=== PATIENT | male | born 1970 | race African-American/Black ===

== ENCOUNTER 2016-08-19 21:49 | Inpatient (IN) | payer SELFPAY ==
[~2016-08-19] VITALS: Ht 191.8 cm; Wt 154.3 kg
[2016-08-19] MEDS ORDERED: ASPIRIN 81MG TABLET PO STA (22:31)
[2016-08-19] MEDS: NITROGLYCERIN 0.4MG TABLET SL SL PRN ×2 (22:45→22:50)
[2016-08-19] MEDS ORDERED: ONDANSETRON HCL 4MG/2ML VIAL IV STA (22:52)
[2016-08-19] MEDS ORDERED: MORPHINE SULFATE 4 MG/ML CPJ (NOT FOR IM USE) IV ONE (23:00)
[2016-08-19 23:06] LABS: BASOPHILS % 0.3 % (0.0-2.0); HEMATOCRIT. 44.5 % (42.0-52.0); HEMOGLOBIN. 14.6 g/dL (14.0-18.0); LYMPHOCYTES % 7.3 % (20.0-50.0); MEAN CORPUSCULAR HEMOGLOBIN 28.2 pg (28.0-32.0); MEAN CORPUSCULAR HGB CONC 32.9 g/dL (31.0-37.0); MEAN CORPUSCULAR VOLUME 85.7 fL (80.0-94.0); MEAN PLATELET VOLUME 9.2 fl (7.4-10.4); MONOCYTES % 4.4 % (2.0-8.0); PLATELET 210 x1000/uL (130-400); RED BLOOD CELL COUNT 5.19 mill/uL (4.7-6.1); RED CELL DISTRIBUTION WIDTH 13.7 % (11.6-14.6); WHITE BLOOD COUNT 8.5 x1000/uL (4.5-11.0)
[2016-08-19 23:11] LABS: CALCIUM 9.1 mg/dL (8.5-10.1); D-DIMER 0.73 mg/L FEU (<0.50); INR 1.1; PARTIAL THROMBOPLASTIN TIME 24.3 sec (24.0-34.0); PROTHROMBIN TIME 11.4 sec
[2016-08-19 23:17] LABS: TROPONIN I 0.03 ng/mL (0.00-0.04)
[2016-08-20] MEDS ORDERED: LORAZEPAM 2MG/ML CPJ IV ONE
[2016-08-20] MEDS ORDERED: ONDANSETRON HCL 4MG/2ML VIAL IV PRN (00:45)
[2016-08-20] MEDS ORDERED: ACETAMINOPHEN 325MG TABLET PO PRN (00:45)
[2016-08-20] MEDS ORDERED: IPRATROPIUM/ALBUTEROL 0.5-3(2.5)MG/3ML NEB INH PRN (00:45)
[2016-08-20] MEDS ORDERED: DOCUSATE SODIUM 100MG CAPSULE PO PRN (00:45)
[2016-08-20] MEDS: HYDROCODONE/ACETAMINOPHEN 5/325MG TABLET PO PRN ×3 (04:00→20:49)
[2016-08-20 04:30] VITALS: BP 113/85
[2016-08-20] MEDS ORDERED: MVI, ADULT NO.1 10 ML, FOLIC ACID 1 MG, THIAMINE HCL 100 MG in SODIUM CHLORIDE 0.9% 1,0... IV NR ×4 (06:00)
[2016-08-20 06:56] LABS: HEMATOCRIT 40.6 % (42.0-52.0); HEMOGLOBIN 13.4 g/dL (14.0-18.0); MEAN CORPUSCULAR HGB CONC 33.1 g/dL (31.0-37.0); MEAN CORPUSCULAR VOLUME 84.6 fL (80.0-94.0); PLATELET 209 x1000/uL (130-400); RED BLOOD CELL COUNT 4.79 mill/uL (4.7-6.1); WHITE BLOOD COUNT 8.6 x1000/uL (4.5-11.0)
[2016-08-20 07:11] LABS: ANION GAP 13; CALCIUM 8.6 mg/dL (8.5-10.1); CARBON DIOXIDE 26 mEq/L (21-32); CHLORIDE 105 mEq/L (98-107); HDL CHOLESTEROL 59 mg/dL (40-59); INDEX HEMOLYSI 2 (1-3); INDEX ICTERIC 1 (1-4); INDEX LIPEMIC 1 (1-3); LDL CHOLESTEROL 57 mg/dL (5-100); TRIGLYCERIDE 59 mg/dL (0-150); TROPONIN I 0.06 ng/mL (0.00-0.04); UREA NITROGEN BLOOD 17 mg/dL (7-21); eGFR > 60 mL/min (>60)
[2016-08-20] MEDS ORDERED: SERT50TA PO (07:45)
[2016-08-20] MEDS ORDERED: AMLO10TA80 PO (07:45)
[2016-08-20] MEDS ORDERED: TRAM50TA3 PO (07:45)
[2016-08-20] MEDS ORDERED: HYDR-519 PO (07:45)
[2016-08-20] MEDS ORDERED: HYDR25TA PO (07:45)
[2016-08-20] MEDS ORDERED: MIRT45TA PO (07:45)
[2016-08-20 08:00] VITALS: BP 117/71
[2016-08-20] MEDS ORDERED: ENOXAPARIN 30MG/0.3ML SYR SUBCUT SCH (09:00)
[2016-08-20 12:00] VITALS: BP 115/79
[2016-08-20 12:53] LABS: *AMPHETAMINES SCREEN URINE NEGATIVE (NEGATIVE); *BARBITURATES SCREEN URINE NEGATIVE (NEGATIVE); *BENZODIAZEPINES SCREEN URINE NEGATIVE (NEGATIVE); *COCAINE SCREEN URINE PRESUMTIVE POSITIVE (NEGATIVE); CANNABINOID URINE SCREEN NEGATIVE (NEGATIVE); ECSTASY MDMA SCREEN URINE NEGATIVE (NEGATIVE); METHADONE URINE SCREEN NEGATIVE (NEGATIVE); OPIATES URINE SCREEN PRESUMTIVE POSITIVE (NEGATIVE); PHENCYCLIDINE URINE SCREEN NEGATIVE (NEGATIVE)
[2016-08-20] MEDS ORDERED: SODIUM CHLORIDE 0.9% 10ML VIAL ONE (13:37)
[2016-08-20] MEDS ORDERED: IOHEXOL-350 100 ML BOTTLE ONE (13:37)
[2016-08-20] MEDS: CLOTRIMAZOLE 1% CREAM 30GM TOP SCH ×2 (15:04→20:50)
[2016-08-20 16:00] VITALS: BP 132/94
[2016-08-20 20:00] VITALS: BP 133/96
[2016-08-20] MEDS: ENOXAPARIN 40MG/0.4ML SYR SUBCUT SCH (20:49)
[2016-08-21] VITALS: BP 116/60
[2016-08-21 04:00] VITALS: BP 126/84
[2016-08-21 06:02] LABS: BASOPHILS % 0.5 % (0.0-2.0); EOSINOPHILS % 2.1 % (0.0-5.0); HEMATOCRIT. 40.1 % (42.0-52.0); HEMOGLOBIN. 13.1 g/dL (14.0-18.0); LYMPHOCYTES % 50.6 % (20.0-50.0); MEAN CORPUSCULAR HEMOGLOBIN 28.1 pg (28.0-32.0); MEAN CORPUSCULAR HGB CONC 32.6 g/dL (31.0-37.0); MEAN CORPUSCULAR VOLUME 86.3 fL (80.0-94.0); MONOCYTES % 9.5 % (2.0-8.0); NEUTROPHILS % 37.3 % (40.0-76.0); PLATELET 185 x1000/uL (130-400); RED BLOOD CELL COUNT 4.65 mill/uL (4.7-6.1); RED CELL DISTRIBUTION WIDTH 14.1 % (11.6-14.6); WHITE BLOOD COUNT 6.8 x1000/uL (4.5-11.0)
[2016-08-21 06:42] LABS: ANION GAP 11; CALCIUM 8.3 mg/dL (8.5-10.1); CARBON DIOXIDE 32 mEq/L (21-32); CHLORIDE 101 mEq/L (98-107); INDEX HEMOLYSI 1 (1-3); INDEX ICTERIC 1 (1-4); INDEX LIPEMIC 1 (1-3); UREA NITROGEN BLOOD 18 mg/dL (7-21); eGFR > 60 mL/min (>60)
[2016-08-21 08:00] VITALS: BP 126/99
[2016-08-21] MEDS: ENOXAPARIN 40MG/0.4ML SYR SUBCUT SCH (08:42)
[2016-08-21] MEDS: CLOTRIMAZOLE 1% CREAM 30GM TOP SCH (08:43)
[2016-08-21 11:53] VITALS: BP 128/87
[2016-08-21 14:50] VITALS: BP 137/86
== END 2016-08-21 15:25 | disposition home or self-care (01) | DRG 203 ==
LOC: ER 21:57 → 6WST 08-20 00:17 → SUPCPDRO 08-20 00:35
PROVIDERS: ADMIT Family Medicine Adult Medicine; ATTEND Family Medicine Adult Medicine
DX: R07.89 Other chest pain (principal); N17.9 Acute kidney failure, unspecified; Z68.41 Body mass index [BMI] 40.0-44.9, adult; I10 Essential (primary) hypertension; E11.9 Type 2 diabetes mellitus without complications; E66.9 Obesity, unspecified; F31.9 Bipolar disorder, unspecified; F12.90 Cannabis use, unspecified, uncomplicated; F43.10 Post-traumatic stress disorder, unspecified; F14.988 Cocaine use, unspecified with other cocaine-induced disorder; F10.129 Alcohol abuse with intoxication, unspecified; Z82.49 Family history of ischemic heart disease and other diseases of the circulatory system; Z85.048 Personal history of other malignant neoplasm of rectum, rectosigmoid junction, and anus; Z98.890 Other specified postprocedural states
CPT/HCPCS: 36415; 71010; 71275; 80048; 80061; 80305; 82962; 83880; 84484; 85025; 85027; 85379; 85610; 85730; 93005; 93306; 96374; 96375; 96376; 99285; A4216; G0482; J1650; J2060; J2270; J2405; J3411; J3490; J7030; Q9967